=== PATIENT | female | born 1965 | race Caucasian/White ===

== ENCOUNTER 2020-08-20 17:33 | Observation (INO) | payer BC ==
--- OUTSIDE RECORDS SUMMARY | 2020-08-20 17:35 | XMS REPORT | Clinical Summary ---
:1965 Author Organization [facility] Address [address] [place] [address] Care Team Providers Name Role Phone Provider, Unknown Primary Care Provider Unavailable Allergies Not on File Medications Not on file Active Problems Not on file Social History Tobacco Use Types Packs/Day Years Used Date Never Assessed Sex Assigned at Date Recorded Not on file Last Filed Vital Signs Not on file Plan of Treatment Health Maintenance Due Date Last Done Comments COVID-19 VACCINE (#1) 1981 CERVICAL CANCER SCREENING 1986 BREAST CANCER SCREENING 2015 COLONOSCOPY SCREENING 2015 SHINGLES VACCINES (#1) 2015 INFLUENZA VACCINE 03/09/2020 Results Not on fileafter 08/20/2019 Insurance Payer Benefit Plan / Subscriber ID Effective Dates Phone Addre ss Type Group [facility] [id number] 2016-Melony bonilla [facility] SCANS Advance Directives For more information, please contact: [phone] Type Date Recorded Patient Web Site Admin Explanati on Advance Directives, Living Will and Medical Power of [employer]
--- OUTSIDE RECORDS SUMMARY | 2020-08-20 17:35 | XMS REPORT | Continuity of Care Document ---
:1965 Author Organization [facility] t Address [address] [place] [address] Care Team Providers Name Role Phone Provider Primary Care Physician Unavailable Problems This patient has no known problems. Allergies, Adverse Reactions, Alerts This patient has no known allergies or adverse reactions. Social History Social Habit Start Date Stop Date Quantity Comments Source Sex Assigned At [facility] Medications This patient has no known medications. Procedures This patient has no known procedures. Plan of Care Planned Activity Planned Date Details Comments Source Future Scheduled 2020-03-09 INFLUENZA VACCINE [place] [facility] 00:00:00 [code = INFLUENZA VACCINE] Future Scheduled 2015 BREAST CANCER [facility] Test 00:00:00 SCREENING [code = BREAST CANCER SCREENING] Future Scheduled 2015 COLONOSCOPY SCREENING [place] [facility] Test 00:00:00 [code = COLONOSCOPY SCREENING] Future Scheduled 2015 SHINGLES VACCINES [place] [facility] 00:00:00 (#1) [code = SHINGLES VACCINES (#1)] Future Scheduled 1986 Screening for [facility] Test 00:00:00 malignant neoplasm of cervix (procedure) [code = 157310161] Future Scheduled 1981 COVID-19 VACCINE (#1) [place] [facility] Test 00:00:00 [code = COVID-19 VACCINE (#1)] Results This patient has no known results.
[2020-08-20] MEDS ORDERED: LOPERAMIDE HCL 2 MG CAPSULE PO PRN (18:00)
[2020-08-20] MEDS ORDERED: PNEUMOCOCCAL VACCINE 0.5 ML IMVAC ONE (18:00)
[2020-08-20] MEDS ORDERED: DIPHENHYDRAMINE 25 MG TAB/CAP PO PRN (18:00)
[2020-08-20] MEDS ORDERED: POLYETHYL GLY 3350 17 GM/DOSE PO PRN (18:00)
[2020-08-20] MEDS ORDERED: ONDANSETRON 4 MG/2 ML VIAL IV PRN (18:00)
[2020-08-20] MEDS ORDERED: NACHLORIDE 0.45% 1,000 ML IV SCH (18:00)
[2020-08-20] MEDS ORDERED: ONDANSETRON 4 MG (ODT) TAB PO PRN (18:00)
[2020-08-20] MEDS ORDERED: ACETAMINOPHEN 325 MG TABLET PO PRN (18:00)
[2020-08-20] MEDS ORDERED: INFLUENZA VACCINE (for 3y+) 0.5 ML DOSE IMVAC ONE (18:00)
[2020-08-20 18:07] VITALS: BMI 25.6
[2020-08-20 18:53] LABS: Absolute Lymphocytes (CBC) 2.3 K/uL (0.7-4.9); Basophils % 0.6 % (0-1.3); Hematocrit 40.9 % (36.0-45.0); Lymphocytes % 28.6 % (15.3-44.8); MPV 9.3 fL (7.6-11.3); RBC Red Blood Cell Count 4.61 M/uL (3.86-4.86)
[2020-08-20 18:57] LABS: Protime INR 0.96
[2020-08-20] MEDS ORDERED: HYDROMORPHONE HCL 1 MG/ML INJ IV PRN (18:58)
[2020-08-20 19:31] LABS: ALT/SGPT 31 U/L (12-78); AST/SGOT 23 U/L (15-37); Alkaline Phosphatase 70 U/L (45-117); BUN Blood Urea Nitrogen 10 mg/dL (7-18); Bicarbonate 31 mmol/L (21-32); Bilirubin Direct < 0.1 mg/dL (0-0.2); Bilirubin Total 0.3 mg/dL (0.2-1.0); Glucose Level 83 mg/dL (74-106); Potassium 3.9 mmol/L (3.5-5.1); Sodium Level 142 mmol/L (136-145)
[2020-08-20 19:32] LABS: Albumin 3.7 g/dL (3.4-5.0); Phosphorus 3.3 mg/dL (2.5-4.9); Protein, Total 7.3 g/dL (6.4-8.2)
--- NOTE | 2020-08-20 19:33 | RAD REPORT ---
EXAM DESCRIPTION: Meghan Lawrence (2 Views)08/20/2020 7:22 pm CLINICAL HISTORY: Abdominal pain COMPARISON: None FINDINGS: The lungs appear clear of acute infiltrate. The heart is normal size IMPRESSION: No acute abnormalities displayed
--- NOTE | 2020-08-20 19:41 | RAD REPORT ---
EXAM DESCRIPTION: CT - Stone Protocol - 08/20/2020 7:25 pm CLINICAL HISTORY: Abdominal pain. COMPARISON: None. TECHNIQUE: Computed axial tomography of the abdomen pelvis was obtained without oral or IV contrast. Lack of IV and oral contrast limits evaluation of solid organs, bowel, and vessels. Coronal reformat beto images were obtained and reviewed. All CT scans are performed using dose optimization technique as appropriate and may include automated exposure control or mA/KV adjustment according to patient size. FINDINGS: A renal calculus is not seen. An ureteral calculus is not noted. A bladder calculus is not present. Pyelonephritis is usually not visualized on an unenhanced CT scan The liver, spleen, pancreas and adrenals appear grossly normal There is no evidence of diverticulitis. The appendix appears normal A moderate amount of stool is present throughout the colon. Small umbilical hernia IMPRESSION: Negative for a genitourinary calculus Moderate amount of stool present throughout the colon
[2020-08-20 20:02] LABS: Urine Appearance CLEAR; Urine Bilirubin NEGATIVE (NEG); Urine Blood NEGATIVE (NEG); Urine Color YELLOW; Urine Glucose NEGATIVE (NEG); Urine Protein NEGATIVE (NEG); Urine Specific Gravity <=1.005 (1.005-1.030); Urine Urobilinogen 0.2 mg/dL (0.2-1.0)
[2020-08-20 20:17] LABS: Urine Microscopic Reflex NO UMIC
[2020-08-20] MEDS ORDERED: methocarbamoL 500 MG TAB PO PRN (20:49)
--- NOTE | 2020-08-20 20:49 | P.SSS ---
Patient History Date of Service: 08/20/20 Reason for admission: RIGHT FLANK PAIN. History of Present Illness: SUKHDEV CAME TO OFFICE WITH SEVERE R FLANK PAIN, BURNING AT URINATION WITHOUT FEVER. I SUSPECTED PYELONEPHRITIS SHE HAS DONE A FEW HIKES OF A FEW MILES EACH AND SHE DEVELOPED THIS. I GAVE HER CIPRO PO, SHE WAS TO HAVE CT SCAN DONE BUT INSURANCE COMPANY [employer] DID NOT APPROVE IT ON TIME. HER PAIN IS GETTING WORSE SO I DECIDED TO ADMIT HER FOR 23 HOURS OBSERVATION. SHE HAD UTI SYMPTOMS THIS AM ALSO. Allergies Sulfa (Sulfonamide Antibiotics) Adverse Reaction (Verified 06/17/16 06:52) Nausea/Vomiting Home Medications: Ciprofloxacin HCl 500 mg PO BID 08/20/20 Estradiol [Vivelle-Dot] 1 patch TOP SEECOM 08/20/20 buPROPion HCL [Bupropion Xl] 300 mg PO DAILY 08/20/20 methocarbamoL [Methocarbamol] 500 mg PO TIDP PRN 08/20/20 Review of Systems 10-point ROS is otherwise unremarkable Physical Examination - Vital Signs Temperature: 97.6 F Blood Pressure: 112/54 Pulse: 79 Respirations: 18 Pulse Ox (%): 100 - Physical Exam Gastrointestinal: Tenderness (R FLANK.) - Studies Laboratory Data (last 24 hrs) 08/20/20 18:40: Sodium 142, Potassium 3.9, BUN 10, Creatinine 1.14, Glucose 83, Phosphorus 3.3, Magnesium 2.0, Total Bilirubin 0.3, AST 23, ALT 31, Alkaline Phosphatase 70 08/20/20 18:40: PT 11.3, INR 0.96, APTT 33.2 08/20/20 18:40: WBC 8.1, Hgb 13.6, Hct 40.9, Plt Count 301 - Diagnosis (Problem(s)) (1) Flank pain Current Visit: Yes Status: Acute Plan: PAIN WAS UNBEARABLE SO WE ADMITTED HER. HER CT SCAN IS NEGATIVE FOR STONES. IT IS NEGATIVE FOR ANY OTHER ACUTE ISSUES. THIS WAS A STONE PROTOCOL THAT IS CONTRAST NEG SCAN. URINE ANALYSIS IS TOTALLY NEGATIVE. WILL DO MRI LS IN AM. - Disposition Disposition: ROUTINE DISCHARGE
[2020-08-20] MEDS: CIPROFLOXACIN 400 MG/200 ML IVPB IV SCH (21:07)
[2020-08-20 23:28] VITALS: O2SAT 96
[2020-08-21] MEDS: CIPROFLOXACIN 400 MG/200 ML IVPB IV SCH (07:47)
[2020-08-21] MEDS ORDERED: BUPROPION HCL XL 150 MG TAB PO SCH (09:00)
--- NOTE | 2020-08-21 11:28 | RAD REPORT ---
EXAM DESCRIPTION: MRI - Lumbar Spine Milli Tovar- 08/21/2020 11:07 am CLINICAL HISTORY: Right Flank Pain Radiculopathy. COMPARISON: No comparisons FINDINGS: Vertebral body heights are within normal limits. No aggressive marrow pattern is observed. No fracture is suspected. The conus medullaris terminates at a normal level. No thickening of the cauda equina or clumping of n erve roots seen. L1-2 level: No significant findings. L2-3 level: No significant findings. L3-4 level: No significant findings. L4-5 level: Minimal posterior disc bulge. L5-S1 level: Minimal posterior disc bulge. IMPRESSION: Minimal lower lumbar spondylosis.
--- NOTE | 2020-08-21 17:02 | RAD REPORT ---
EXAM DESCRIPTION: CT - Abdomen Pelvis W Contrast - 08/21/2020 4:29 pm CLINICAL HISTORY: flank pain COMPARISON: No comparisonsStone Protocol dated 08/20/2020 TECHNIQUE: Biphasic, helical CT imaging of the abdomen and pelvis was performed following 100 ml non -ionic IV contrast. Oral contrast was given. All CT scans are performed using dose optimization technique as appropriate and may include automated exposure control or mA/KV adjustment according to patient size. FINDINGS: No suspicious findings in the lung bases. The liver, spleen, and pancreas show no suspicious findings. A 10 millimeter cyst is present subcapsu lar dome right lobe. No portal vein abnormality. No gallbladder or biliary tree abnormality. Symmetric renal function is seen with no hydronephrosis or suspicious renal mass. No pyelonephritis o r acute parenchymal process. No bladder abnormalities. No adrenal abnormalities. Uterus is absent. Ov ace are absent or atrophic. No adnexal abnormality. Phlebolith is present left-sided pelvic floor s imilar to comparison. No dilated bowel loops or bowel wall thickening. Appendix is normal. No free air, free fluid or infla mmatory stranding. No hernia, mass or bulky lymphadenopathy. No suspicious bony findings. Mild degenerative change evident at the L5-S1 disc level. IMPRESSION: Contrast enhanced CT abdomen and pelvis showing no significant or suspicious finding. Nonacute findings detailed in the body of the report. No significant change from August 20 imaging.
[2020-08-21 18:19] VITALS: BP 106/53; TEMP 98.2
[2020-08-21] MEDS ORDERED: TRAMADOL HCL 50 MG TAB PO PRN (18:23)
[2020-08-24 13:02] LABS: Vitamin D 1,25-Dihydroxy Total 67 pg/mL (18-72); Vitamin D,1,25-OH2, D2 <8 pg/mL
== END 2020-08-21 19:50 | disposition home or self-care (01) ==
LOC: 2ND 17:33
PROVIDERS: ADMIT Internal Medicine; ATTEND Internal Medicine
DX: R10.9 Unspecified abdominal pain (principal)
CPT/HCPCS: 36415; 71046; 72148; 74176; 74177; 76377; 80048; 80076; 81003; 82607; 82652; 83735; 84100; 84439; 84443; 85025; 85610; 85730; G0378; J0744; J1170; J2405; Q9967

== ENCOUNTER 2021-10-23 22:24 | Emergency (ER) | payer BC ==
--- OUTSIDE RECORDS SUMMARY | 2021-10-23 22:27 | XMS REPORT | Continuity of Care Document ---
:1965 Author Organization [facility] t Address [address] [place] [address] [address]. [address] [place] [id number] Care Team Providers Name Role Phone Unavailable Unavailable Unavailable Problems This patient has no known problems. Allergies, Adverse Reactions, Alerts This patient has no known allergies or adverse reactions. Medications This patient has no known medications. Procedures This patient has no known procedures. Results This patient has no known results.
[2021-10-23 22:56] LABS: Absolute Lymphocytes (CBC) 2.6 K/uL (0.7-4.9); Hematocrit 39.8 % (36.0-45.0); Lymphocytes % 30.6 % (15.3-44.8); MPV 8.8 fL (7.6-11.3); RBC Red Blood Cell Count 4.48 M/uL (3.86-4.86)
[2021-10-23 22:58] LABS: Protime INR 0.95
[2021-10-23] MEDS ORDERED: NA CHLORIDE 0.9% 1,000 ML ONE (23:09)
[2021-10-23] MEDS ORDERED: ALTEPLASE 100 ML IV ONE (23:09)
[2021-10-23 23:10] LABS: Potassium 3.7 mmol/L (3.5-5.1)
[2021-10-23] MEDS ORDERED: NA CHLORIDE 0.9% 50 ML ONE (23:10)
--- NOTE | 2021-10-24 00:27 | EDPHYS ---
Physician Documentation [facility] Name: Thuy Gongora Age: 56 yrs Sex: Female : 1965 Arrival Date: 10/23/2021 Time: 22:26 Bed 3 Private MD: ED Physician Ubaldo Redd HPI: 10/24 06:34 This 56 yrs old Female presents to ER via Ambulatory with complaints of Facial kdr Droop, Blurred Vision, FACIAL DROOPING, PT HAVING WEIRD SENSE OF SMELL, HEAD PRESSURE,. 06:34 The patient presents to the emergency department with weakness of the right side of the kdr face, a vision problem, blurred vision. Onset: The symptoms/episode began/occurred suddenly, at 21:00. Context: occurred at home. Associated signs and symptoms: The patient has no apparent associated signs or symptoms. Severity of symptoms: At their worst the symptoms were mild. Patient's baseline: Neuro: alert and fully oriented, Motor: no deficits, Ambulation: walks without assistance, Speech: normal, The patient has a previous history of control use. Current symptoms: Right facial droop and slight blurry vision that has improved. The patient has not experienced similar symptoms in the past. The patient has not recently seen a physician. Historical: - Allergies: 10/23 22:52 Sulfa (Sulfonamide Antibiotics); bb - Home Meds: 22:52 hormone patch [Active]; Wellbutrin Oral [Active]; bb - PMHx: 22:52 high cholesterol; bb - PSHx: 22:52 section; hysterectomy; bb - Immunization history:: Pfizer x 1. - Social history:: Smoking status: Patient denies any tobacco usage or history of. ROS: 10/24 06:34 Constitutional: Negative for fever, chills, and weight loss, Eyes: Negative for injury, kdr pain, redness, and discharge, Neck: Negative for injury, pain, and swelling, Cardiovascular: Negative for chest pain, palpitations, and edema, Respiratory: Negative for shortness of breath, cough, wheezing, and pleuritic chest pain, Abdomen/GI: Negative for abdominal pain, nausea, vomiting, diarrhea, and constipation, Back: Negative for injury and pain, : Negative for injury, bleeding, discharge, and swelling, MS/Extremity: Negative for injury and deformity, Skin: Negative for injury, rash, and discoloration, Psych: Negative for depression, anxiety, suicide ideation, homicidal ideation, and hallucinations, Allergy/Immunology: Negative for hives, rash, and allergies, Endocrine: Negative for neck swelling, polydipsia, polyuria, polyphagia, and marked weight changes, Hematologic/Lymphatic: Negative for swollen nodes, abnormal bleeding, and unusual bruising. Neuro: Positive for weakness, of the mouth and right jaw, Right perioral area, Negative for altered mental status, dizziness, loss of consciousness, numbness, tinnitus. Exam: 06:34 Constitutional: This is a well developed, well nourished patient who is awake, alert, kdr and in no acute distress. Head/Face: Normocephalic, atraumatic. Eyes: Pupils equal round and reactive to light, extra-ocular motions intact. Lids and lashes normal. Conjunctiva and sclera are non-icteric and not injected. Cornea within normal limits. Periorbital areas with no swelling, redness, or edema. Neck: Trachea midline, no thyromegaly or masses palpated, and no cervical lymphadenopathy. Supple, full range of motion without nuchal rigidity, or vertebral point tenderness. No Meningismus. Chest/axilla: Normal chest wall appearance and motion. Nontender with no deformity. No lesions are appreciated. Cardiovascular: Regular rate and rhythm with a normal S1 and S2. No gallops, murmurs, or rubs. Normal PMI, no JVD. No pulse deficits. Respiratory: Lungs have equal breath sounds bilaterally, clear to auscultation and percussion. No rales, rhonchi or wheezes noted. No increased work of breathing, no retractions or nasal flaring. Abdomen/GI: Soft, non-tender, with normal bowel sounds. No distension or tympany. No guarding or rebound. No evidence of tenderness throughout. Back: No spinal tenderness. No costovertebral tenderness. Full range of motion. Skin: Warm, dry with normal turgor. Normal color with no rashes, no lesions, and no evidence of cellulitis. MS/ Extremity: Pulses equal, no cyanosis. Neurovascular intact. Full, normal range of motion. Psych: Awake, alert, with orientation to person, place and time. Behavior, mood, and affect are within normal limits. 06:34 Neuro: Orientation: is normal, Mentation: is normal, Memory: is normal, Cranial nerves: visual deal are intact. extraocular movements are intact, Right perioral drooping with slight loss of nasal labial fold definition on the right. The right eye and forehead are unaffected. Cerebellar function: is grossly normal, is grossly normal based on the patient's age, Motor: moves all fours, strength is 5/5 in all extremities, the no evidence of posturing, Sensation: is normal. Vital Signs: 10/23 22:32 BP 146 / 88; Pulse 73; Resp 16 S; Temp 97.7(TE); Pulse Ox 100% on R/A; Weight 58.97 kg bb (R); Height 4 ft. 11 in. (149.86 cm) (R); Pain 5/10; 23:00 BP 121 / 68; Pulse 80; Resp 16; Pulse Ox 100% on R/A; st1 10/24 00:05 BP 139 / 67; Pulse 78; Resp 18; Pulse Ox 100% on R/A; kd3 00:20 BP 125 / 72; Pulse 81; Resp 17; Temp 98.2(O); Pulse Ox 100% on R/A; kd3 00:30 BP 104 / 53; Pulse 76; Resp 16; Pulse Ox 98% on R/A; Pain 0/10; st1 00:35 BP 104 / 53; Pulse 79; Resp 16; Pulse Ox 100% on R/A; kd3 00:35 BP 134 / 79; Pulse 92; Resp 16; Pulse Ox 100% on R/A; kd3 10/23 22:32 Body Mass Index 26.26 (58.97 kg, 149.86 cm) bb NIH Stroke Scale Scores: 10/23 22:46 NIHSS Score: 1 kd3 MDM: 22:56 Data reviewed: vital signs, nurses notes. kdr 10/24 00:26 Patient medically screened. kdr 00:28 ED course: Course of obtaining informed consent, the patient expressed some concern kdr about the risk for intracranial hemorrhage. She asked to speak with her primary care physician. Was able to connect patient at her PCP via my personal cell phone in the room. During that conversation with the PCP the patient was informed that they would be best served by driving themselves to [place] or [place] to the emergency department therefore an MRI. At the time of this advice, the patient was within 15 to 30 minutes of being outside the window to obtain TPA. The patient became visibly upset and shaken by this information. On conclusion of that conversation, the patient was very confused about what her options were at that point and what the best course of action was. I offered to connect her with the neurologist on-call (Dr. Doss) and they subsequently talked. Dr. Doss emphasized the importance of timely intervention at this time given the potential for this current relatively minimal deficit to evolve. He addressed the concern for intracranial hemorrhage with the patient. At the conclusion of this discussion, the patient elected to receive TPA and then be transferred to the [facility] for observation where any potential complication from receipt of the TPA could be best managed. Due to the extended conversations that revolved around the decision to give the TPA, infusion within the 3-hour window was not achieved.. 10/23 22:35 Order name: Basic Metabolic Panel [facility] 10/23 22:35 Order name: CBC with Diff [facility] 10/23 22:35 Order name: Protime (+inr) [facility] 10/23 22:35 Order name: Ptt, Activated [facility] 10/23 22:35 Order name: Basic Metabolic Panel [facility] 10/23 22:35 Order name: CBC with Automated Diff [facility] 10/23 22:35 Order name: CT Stroke Brain w/o Contrast [facility] 10/23 22:35 Order name: Stroke CXR 1 View [facility] 10/23 22:35 Order name: Accucheck; Complete Time: 23:19 [facility] 10/23 22:35 Order name: Cardiac monitoring; Complete Time: 23:20 [facility] 10/23 22:35 Order name: Protime (+INR) [facility] 10/23 22:56 Order name: Glucose, Ancillary Testing [facility] 10/23 22:35 Order name: EKG - Nurse/Tech; Complete Time: 23:19 [facility] 10/23 22:35 Order name: IV Saline Lock; Complete Time: 23:19 [facility] 10/23 22:35 Order name: Labs collected and sent; Complete Time: 23:19 [facility] 10/23 22:35 Order name: NPO; Complete Time: 23:19 [facility] 10/23 22:35 Order name: O2 Per Protocol; Complete Time: 23:19 [facility] 10/23 22:35 Order name: O2 Sat Monitoring; Complete Time: 23:19 [facility] 10/23 22:35 Order name: Stroke Swallow Screen; Complete Time: 00:46 kdr Administered Medications: 00:07 Drug: Alteplase {Co-Signature: st1 (Rosa Martinez RN).} Route: IV Thrombolytics; Rate: kd3 calculated rate; Point of Care Testing: Blood Glucose: 10/23 22:46 Blood Glucose: 94 mg/dL; st1 Ranges: Critical Glucose Levels:Adult <50 mg/dl or >400 mg/dl <40 mg/dl or >180 mg/dl Disposition Summary: 10/24/21 00:26 Transfer Ordered Transfer Location: [facility] kdr Reason: Higher level of care kdr Condition: Fair kdr Problem: new kdr Symptoms: have improved kdr Accepting Physician: James(10/24/21 01:30) bb Diagnosis - Right Facial Weakness kdr - Vision Changes kdr Forms: - Medication Reconciliation Form kdr - SBAR form kdr NIH Stroke Scale - NIH Stroke Score Date: 10/23/2021 Time: 22:46 Total Score = 1 1a. Level of Consciousness (LOC) - 0(Alert) 1b. Level of Consciousness (LOC) (Month \T\ Age) - 0(Both) 1c. LOC Commands (Open \T\ Closes Eyes/[employer]) - 0(Both) 2. Best Gaze (Lateral Gaze Paresis) - 0(Normal) 3. Visual Field Loss - 0(No visual loss) 4. Facial Palsy - 1(Minor Paralysis) 5a. Left Arm: Motor (10-second hold) - 0(No drift) 5b. Right Arm: Motor (10-second hold) - 0(No drift) 6a. Left Leg: Motor (5-second hold - always test supine) - 0(No drift) 6b. Right Leg: Motor (5-second hold - always test supine) - 0(No drift) 7. Limb Ataxia (finger/nose \T\ heel/harvey - test with eyes open) - 0(Absent) 8. Sensory Loss (pinprick arms/legs/face) - 0(Normal) 9. Best Language: Aphasia (description/naming/reading) - 0(No aphasia) 10. Dysarthria (speech clarity - read or repeat words) - 0(Normal) 11. Extinction and Inattention (visual/tactile/auditory/spatial/personal) - 0(No abnormality) Initials: kd3 Signatures: Dispatcher [employer] Ubaldo Marroquin MD MD kdr Ballard, Brenda RN RN bb Aurelia Garcia RN RN kd3 Rosa Martinez RN st1 Corrections: (The following items were deleted from the chart) 10/24 00:28 00:26 James solorzano kdr 01:30 00:28 James solorzano bb
--- NOTE | 2021-10-24 00:27 | ER ---
Nurse's Notes [facility] Name: Thuy Gongora Age: 56 yrs Sex: Female : 1965 Arrival Date: 10/23/2021 Time: 22:26 Bed 3 Private MD: Diagnosis: Right Facial Weakness;Vision Changes Presentation: 10/23 22:32 Chief complaint: Patient states: she was on the treadmill earlier tonight and started bb having blurred vision then she noticed she has a right sided facial droop. Pt to CT scan accompanied by this RN. Coronavirus screen: At this time, the client does not indicate any symptoms associated with coronavirus-19. Ebola Screen: No symptoms or risks identified at this time. An acute neurological deficit is present. Initial Sepsis Screen: Does the patient meet any 2 criteria? No. Patient's initial sepsis screen is negative. Does the patient have a suspected source of infection? No. Patient's initial sepsis screen is negative. Risk Assessment: Do you want to hurt yourself or someone else? Patient reports no desire to harm self or others. Onset of symptoms was October 23, 2021 at 21:00. 22:32 Method Of Arrival: Ambulatory bb 22:32 Acuity: BHANU 2 bb 22:45 Pre-hospital glucose is not applicable to this patient. kd3 Triage Assessment: 22:52 The onset of the patients symptoms was October 23, 2021 at 21:00. bb 10/24 01:09 General: Appears in no apparent distress. Behavior is calm, cooperative, appropriate kd3 for age. Pain: Complains of pain in headache. Neuro: Facial droop on right, Reports blurred vision in outer aspect of conjuctiva of left eye. Stroke Activation: Symptom onset < 3 hours Physician: Stroke Attending; Name: ; Notified At: ; Arrived At: Physician: Chief Stroke Resident; Name: ; Notified At: ; Arrived At: Physician: Stroke Resident; Name: ; Notified At: ; Arrived At: Physician: ED Attending; Name: Tramaine; Notified At: 22:32; Arrived At: Physician: ED Resident; Name: ; Notified At: ; Arrived At: Historical: - Allergies: 10/23 22:52 Sulfa (Sulfonamide Antibiotics); bb - Home Meds: 22:52 hormone patch [Active]; Wellbutrin Oral [Active]; bb - PMHx: 22:52 high cholesterol; bb - PSHx: 22:52 section; hysterectomy; bb - Immunization history:: Pfizer x 1. - Social history:: Smoking status: Patient denies any tobacco usage or history of. Screenin:21 Abuse screen: Denies threats or abuse. Nutritional screening: No deficits noted. st1 Tuberculosis screening: No symptoms or risk factors identified. Fall Risk None identified. No fall in past 12 months (0 pts). No secondary diagnosis (0 pts). IV access (20 points). Ambulatory Aid- None/Bed Rest/Nurse Assist (0 pts). Gait- Normal/Bed Rest/Wheelchair (0 pts) Mental Status- Oriented to own ability (0 pts). Total Short Fall Scale indicates No Risk (0-24 pts). 10/24 00:46 Patient has been NPO before screening. The patient is alert, able to follow commands. st1 The patient does not exhibit slurred or garbled speech The patient is not exhibiting difficulty speaking. The patient is exhibiting difficulty understanding words. The patient is able to swallow own secretions with no drooling or need for suction. Patient tolerated one teaspoon of water. No drooling, immediate coughing, gurgling, or clearing of the throat was noted. The patient tolerated 90mL of water. No drooling, immediate coughing, gurgling, or clearing of the throat was noted. The patient passed the bedside swallow screening. Oral medications may be given as ordered. Contact Physician for further diet orders. Assessment: 10/23 22:33 Reassessment: code stroke activated. kd3 22:35 Reassessment: pt to CT scan. kd3 22:46 VAN Scoring: Arm Drift: Patients demonstrates NO arm weakness. Patient is VAN Negative. kd3 Visual Disturbance: No visual disturbance noted. Aphasia: No aphasia noted. Neglect: No neglect noted. Patient has been NPO before screening. The patient is alert, and able to follow commands. The patient does not exhibit slurred or garbled speech. The patient is not exhibiting difficulty speaking. The patient does not exhibit difficulty understanding words. The patient is able to swallow own secretions with no drooling or need for suction. Patient tolerated one teaspoon of water. No drooling, immediate coughing, gurgling, or clearing of the throat was noted. The patient tolerated 90mL of water. No drooling, immediate coughing, gurgling, or clearing of the throat was noted. The patient passed the bedside swallow screening. Oral medications may be given as ordered. Contact Physician for further diet orders. Provider notified of bedside swallow screening results: Ubaldo Redd MD. T-PA (Activase) Screening:. 22:46 T-PA (Activase) Screening:. General: Appears in no apparent distress. Behavior is calm, kd3 cooperative, appropriate for age. Neuro: Level of Consciousness is awake, alert, obeys commands, Oriented to person, place, time, situation, Draw Tender are equal bilaterally Moves all extremities. Gait is steady, Speech is normal, Facial droop on right, Pupils are PERRLA, Intact. 22:46 Cardiovascular: Patient's skin is warm and dry. Respiratory: Airway is patent Trachea kd3 midline Respiratory effort is even, unlabored, Respiratory pattern is regular. 22:58 Reassessment: Dr Redd notified of CT results. bb 23:23 T-PA (Activase) Screening: Indications: Definite evidence of stroke, ischemic, embolic, kd3 or hypertensive: Yes. 23:23 Reassessment: pt discussing TPA with provider. provider at the bedside. kd3 23:35 Reassessment: pt discussing options with provider at bedside. kd3 23:40 Reassessment: provider speaking to pt at bedside regarding TPA vs driving to the [facility]. consent not obtained. 23:45 Reassessment: pt unsure of tpa. pt speaking to provider at bedside. kd3 23:55 Reassessment: pt agrees to tpa, consent obtained. kd3 Vital Signs: 22:32 BP 146 / 88; Pulse 73; Resp 16 S; Temp 97.7(TE); Pulse Ox 100% on R/A; Weight 58.97 kg bb (R); Height 4 ft. 11 in. (149.86 cm) (R); Pain 5/10; 23:00 BP 121 / 68; Pulse 80; Resp 16; Pulse Ox 100% on R/A; st1 18 00:05 BP 139 / 67; Pulse 78; Resp 18; Pulse Ox 100% on R/A; kd3 00:20 BP 125 / 72; Pulse 81; Resp 17; Temp 98.2(O); Pulse Ox 100% on R/A; kd3 00:30 BP 104 / 53; Pulse 76; Resp 16; Pulse Ox 98% on R/A; Pain 0/10; st1 00:35 BP 104 / 53; Pulse 79; Resp 16; Pulse Ox 100% on R/A; kd3 00:35 BP 134 / 79; Pulse 92; Resp 16; Pulse Ox 100% on R/A; kd3 10/23 22:32 Body Mass Index 26.26 (58.97 kg, 149.86 cm) bb NIH Stroke Scale Scores: 10/23 22:46 NIHSS Score: 1 kd3 ED Course: 22:26 Patient arrived in ED. jj6 22:32 Arm band placed on right wrist. Patient placed in an exam room, on a stretcher, on bb laboratory monitor, on pulse oximetry. Family accompanied patient. 22:34 Ubaldo Redd MD is Attending Physician. kdr 22:40 CT Stroke Brain w/o Contrast In Process Unspecified. EDMS 22:46 Inserted saline lock: 20 gauge in right antecubital area, using aseptic technique. st1 Blood collected. 22:50 Inserted saline lock: 18 gauge in left antecubital area, using aseptic technique. kd3 22:51 Stroke CXR 1 View In Process Unspecified. EDMS 22:51 Triage completed. bb 23:07 Aurelia Garcia, RN is Primary Nurse. kd3 23:19 Basic Metabolic Panel Sent. st1 23:19 CBC with Diff Sent. st1 23:19 Protime (+inr) Sent. st1 23:22 No provider procedures requiring assistance completed. st1 23:22 Patient has correct armband on for positive identification. Placed in gown. Bed in low st1 position. Call light in reach. Side rails up X2. media monitor on. Pulse ox on. NIBP on. Door closed. Warm blanket given. Head of bed elevated. 23:35 initiated a transfer with Elaina from [facility] [place]. mw2 10/24 00:03 administrative approval given by Elaina Lowery/ patient has been accepted to [place] [id number] [facility] to the ER/ Dr. Ramirez accepted the patient in transfer/report to be called to [phone]. 01:22 Inserted. kd3 01:32 Patient transferred, IV remains in place. kd3 Administered Medications: 00:07 Drug: Alteplase {Co-Signature: st1 (Rosa Martinez RN).} Route: IV Thrombolytics; Rate: kd3 calculated rate; Point of Care Testing: Blood Glucose: 10/23 22:46 Blood Glucose: 94 mg/dL; st1 Ranges: Outcome: 10/24 00:26 ER care complete, transfer ordered by . kdr 01:30 Patient left the ED. bb 01:31 Transferred by helicopter to [facility]. kd3 01:31 Condition: stable 01:31 Discharge instructions given to patient, family, Instructed on the need for transfer, Demonstrated understanding of instructions, follow-up care. NIH Stroke Scale - NIH Stroke Score Date: 10/23/2021 Time: 22:46 Total Score = 1 1a. Level of Consciousness (LOC) - 0(Alert) 1b. Level of Consciousness (LOC) (Month \T\ Age) - 0(Both) 1c. LOC Commands (Open \T\ Closes Eyes/Hot Dip Plater) - 0(Both) 2. Best Gaze (Lateral Gaze Paresis) - 0(Normal) 3. Visual Field Loss - 0(No visual loss) 4. Facial Palsy - 1(Minor Paralysis) 5a. Left Arm: Motor (10-second hold) - 0(No drift) 5b. Right Arm: Motor (10-second hold) - 0(No drift) 6a. Left Leg: Motor (5-second hold - always test supine) - 0(No drift) 6b. Right Leg: Motor (5-second hold - always test supine) - 0(No drift) 7. Limb Ataxia (finger/nose \T\ heel/harvey - test with eyes open) - 0(Absent) 8. Sensory Loss (pinprick arms/legs/face) - 0(Normal) 9. Best Language: Aphasia (description/naming/reading) - 0(No aphasia) 10. Dysarthria (speech clarity - read or repeat words) - 0(Normal) 11. Extinction and Inattention (visual/tactile/auditory/spatial/personal) - 0(No abnormality) Initials: kd3 Signatures: Dispatcher [employer] EDMD Ubaldo Redd MD MD kdr Ballard, Brenda, RN RN Danitza Tejeda mw2 Raheel Nancy jj6 Aurelia Garcia RN RN kd3 Rosa Martinez RN RN st1 Rosa Martinez RN st1 Corrections: (The following items were deleted from the chart) 01:14 Alteplase IV Thrombolytics at calculated rate kd3 kd3 10/23 22:51 Inserted saline lock: 18 gauge in left antecubital area, using kd3 aseptic technique. st1 10/24 01:21 Reassessment: kd3 kd3 10/23 23:45 Reassessment: pt agrees to tpa, consent obtained kd3 kd3
[2021-10-24 03:16] VITALS: TEMP 97.7
[2021-10-24 03:19] VITALS: BP 104/53; O2SAT 98
--- NOTE | 2021-10-24 10:27 | RAD REPORT ---
EXAM DESCRIPTION: CT - Ct Stroke Brain Wo Cont - 10/24/2021 6:08 am CLINICAL HISTORY: 56 years Female focal neuro deficits TECHNIQUE: Axial noncontrast CT head with coronal and sagittal reformats. All CT scans at this [facility] use dose modulation, iterative reconstruction, and/or weight based dosing when appropriate to red uce radiation dose to as low as reasonably achievable. COMPARISON: None. FINDINGS: Brain: No obvious large acute territorial infarction. No intracranial hemorrhage, midline shift, mass or mass effect. Prominent perivascular space on the right. Ventricles: No hydrocephalus. Orbits: Unremarkable. Sinuses: Visualized portions are clear. Mastoid: Clear. Osseous: Unremarkable. Soft tissues: Unremarkable. IMPRESSION: No acute CT abnormality. Electronically signed by: Patricio Montelongo MD 10/23/2021 11:00 PM CDT THIS REPORT CONTAINS FINDINGS THAT MAY BE CRITICAL TO PATIENT CARE: The findings were verbally discu ssed via telephone conference with Ubaldo Redd MD on 10/23/2021 at 10:59 PM CDT. Due to temporary technical issues with the PACS/Fluency reporting system, reports are being signed by the in house radiologist without review as a courtesy to ensure prompt reporting. The interpreting r adiologist is fully responsible for the content of the report.
--- NOTE | 2021-10-24 11:48 | RAD REPORT ---
EXAM DESCRIPTION: RAD - Chest Single View - 10/23/2021 10:52 pm CLINICAL HISTORY: Stroke protocol chest film, shortness of breath COMPARISON: Two view chest 10/31/2020 TECHNIQUE: AP portable chest image was obtained 10/23/2021 10:52 pm . FINDINGS: Lungs are clear. Heart and vasculature are normal. No measurable pleural effusion and no p neumothorax. No acute bony abnormality seen. No acute aortic findings suspected. Final report was delayed due to technical malfunction with image transfer. IMPRESSION: No acute cardiopulmonary process. No significant change from comparison study.
== END 2021-10-24 01:30 | disposition short-term general hospital (02) ==
LOC: ER 22:24
DX: R29.810 Facial weakness (principal); H53.8 Other visual disturbances; R29.701 NIHSS score 1; E78.00 Pure hypercholesterolemia, unspecified; Z88.2 Allergy status to sulfonamides
CPT/HCPCS: 92977; 85025; 80048; 36415; 85610; 82947; 85730; 70450; 71045; 99285; J2997; J7030